=== PATIENT | female | born 1930 | race African-American/Black ===

== ENCOUNTER 2018-06-25 11:34 | Inpatient (IN) | payer OTHER ==
[~2018-06-25] VITALS: Ht 149.9 cm; Wt 31.8 kg
[2018-06-25 11:35] VITALS: BP 106/68
--- NOTE | 2018-06-25 12:20 | NUR ---
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
[2018-06-25 12:32] LABS: ANION GAP 17 mmol/L (7-16); BUN 114 mg/dL (7-18); CALCIUM 9.5 mg/dL (8.5-10.1); CHLORIDE 120 mmol/L (98-107); CO2 27 mmol/L (21-32); CREATININE 4.6 mg/dL (0.6-1.0); GLUCOSE 197 mg/dL (74-106); MAGNESIUM 3.1 mg/dL (1.8-2.4); POTASSIUM 4.6 mmol/L (3.5-5.1); SGOT 40 U/L (15-37); SGPT 35 U/L (30-65); TOTAL BILIRUBIN 0.9 mg/dL (<0.1-1.0); TOTAL PROTEIN 8.5 g/dL (6.4-8.2); TROPONIN-I <0.06 ng/mL (<0.06)
[2018-06-25 12:36] LABS: SODIUM 164 mmol/L (136-145)
[2018-06-25 12:47] LABS: URINE BLOOD NEGATIVE (Negative); URINE CLARITY CLOUDY; URINE COLOR YELLOW; URINE GLUCOSE-RANDOM* NEGATIVE (Negative); URINE KETONES 1+ (Negative); URINE LEUKOCYTES-REFLEX NEGATIVE (Negative); URINE NITRITE-REFLEX NEGATIVE (Negative); URINE PROTEIN (DIPSTICK) 1+ (Negative); URINE SPECIFIC GRAVITY >= 1.030 (1.005-1.035)
[2018-06-25 12:49] LABS: ICTOTEST (BILI CONFIRMATORY) Negative (Negative); URINE BILIRUBIN NEGATIVE (Negative)
[2018-06-25 13:02] LABS: SQUAMOUS 0-3 Few /LPF (0-3)
[2018-06-25 13:03] LABS: AMORPHOUS URATES Moderate /LPF (None Seen); BACTERIA-REFLEX 1-9 Few /HPF (None Seen); CASTS None Seen /LPF (None Seen); URINE RBC 0-2 Rare /HPF (0-2); URINE WBC-REFLEX 0-5 Rare /HPF (0-5)
[2018-06-25] MEDS ORDERED: VITAMINC500 PO (13:10)
[2018-06-25] MEDS ORDERED: TYLENOL325 MG PO (13:10)
[2018-06-25] MEDS ORDERED: LIORESAL 10 MG10 MG PO (13:11)
[2018-06-25] MEDS ORDERED: AUGMENTIN 875-1 EACH PO (13:11)
[2018-06-25] MEDS ORDERED: UNICOMPLEX M TA1 TA1 PO (13:11)
[2018-06-25] MEDS ORDERED: TRAMADOL 50 MG50 MG PO (13:11)
[2018-06-25] MEDS ORDERED: VOLTAREN GEL 1100 G2 TOP (13:12)
--- NOTE | 2018-06-25 13:17 | NUR ---
[id number] [phone]
[2018-06-25 13:19] VITALS: BP 107/70
--- NOTE | 2018-06-25 14:31 | EKG ---
[address] [place] [address] ELECTROCARDIOGRAM REPORT Name: AVANI RODRIGUEZ Room #: 170-6 ADM IN M.R.#: [id number] ������������������ Admission: 06/25/18 ������������������ Attend Phys: Nedra Donato Discharge: ������������������ Date of : [birth year] Report #: [id number] ����������������������������������������������������������������� [id number] THIS REPORT FOR: //name// [facility] ED Test Date: 2018-06-25 Test Time: 12:13:32 Pat Name: AVANI RODRIGUEZ Department: Room: 170 Gender: F Buyer: SAKINA : 1930 Requested By: Ric Pelayo Order Number: [id number] MD: Freddie Alejandra Measurements Intervals [place] Rate: 104 P: 0 IL: 150 QRS: 14 QRSD: 79 T: 59 QT: 354 QTc: 466 Interpretive Statements Sinus tachycardia Ventricular premature complex Low voltage, extremity leads No previous ECG available for comparison Electronically Signed On 06-25-2018 14:30:54 CDT by Freddie Alejandra [email or web address] ��������������������������������������������� <ELECTRONICALLY SIGNED> ���������������������������������������� By: Freddie Alejandra MD ��������������������������������������������� 06/25/18 1430 1212 12 MD SUSANNA Gaona
[2018-06-25 15:52] VITALS: BP 92/50
--- NOTE | 2018-06-25 18:30 | NUR ---
ADMISSION ASSESMENT COMPLETED. VSS. RESPONSIVE ONLY TO TACTILE STIMULI. WOUNDS PHOTOGRAPHED. IVF INFUSING. REPOSITIONED. BED ALARM ON. WILL CONT. TO MONITOR.
--- NOTE | 2018-06-25 18:46 | NUR ---
WOUND CONSULT: PT. WAS SEEN TODAY BY DR. OLIVER AND MYSELF. PT. HAS MULTIPLE PRESSURE ULCERS AND IS SEVERAL CONTRACTED AND MALNURISHED. RIGHT BUTTOCK-STAGE 4 RIGHT ISCHIAL TUBEROSITY-STAGE 4 RIGHT MEDIAL KNEE-STAGE 2 RIGHT PATTON-STAGE 4 RECOMMENDATIONS: WOUND CARE TO ALL SITES BUT, RIGHT KNEE: GENTLY CLEANSE AREA WITH WOUND CLEANSER OR NORMAL SALINE, PACK WITH DAKIN MOIST KERLIX, COVER WITH ABD, SECURE WITH TAPE, COMPLETE CARES BID. TURN Q2 HOURS KEEP PT. OFF WOUNDS MUCH POSSIBLE KEEP ON SONALI MATRESS. WOUND CARE TO RIGHT MEDIAL KNEE: GENTLY CLEANSE WITH WOUND CLEANSER OR NORMAL SALINE, COVER WITH OPTIFOAM BORDER, COMPLETE CARES M/W/F AND PRN SOILAGE. PT. AND STAFF NURSE WERE INSTRUCTED ON PLAN OF CARE.
[2018-06-25 19:26] VITALS: BP 110/66
[2018-06-26 04:20] VITALS: BP 105/62
--- NOTE | 2018-06-26 04:57 | NUR ---
ASSUMED PT CARE 1899. REASSESSMENT COMPLETE. VSS. DRESSING CHANGES COMPLETE PER ORDER. IV DRESSING C/D/I, NO SIGNS OF INFILTRATION. FREQUENT ROUNDING. WILL CONTINUE POC UINTIL EOS.
[2018-06-26 05:22] LABS: HEMOGLOBIN 7.7 gm/dL (12.0-15.0); MCH 28.5 pg (26.0-34.0); MCV 91.9 fL (80.0-100.0); RBC 2.72 mil/uL (4.20-5.00); RDW 18.2 % (10.5-14.5); WBC 11.8 thou/uL (4.0-11.0)
[2018-06-26 05:30] LABS: CALCIUM 8.9 mg/dL (8.5-10.1); CREATININE 4.4 mg/dL (0.6-1.0); POTASSIUM 4.7 mmol/L (3.5-5.1)
[2018-06-26 07:08] VITALS: BP 115/71
[2018-06-26] MEDS ORDERED: DURAGESIC1 EAC4 TRANSDERM (09:38)
[2018-06-26] MEDS ORDERED: MSL20MG/ML PO (09:38)
--- NOTE | 2018-06-26 09:59 | NUR ---
WOUND FOLLOW UP: PT. WAS SEEN TODAY BY DR. OLIVER AND MYSELF. PT. WOUNDS ARE NON-CHANGING. UN-LIKLEY TO HEAL AT THIS POINT. PT. IS VERY CONTRACTURED AND NON-VERBAL. RECOMMENDATIONS: CONTINUE WITH CURRENT PLAN OF CARE. PT. AND STAFF NURSE WERE INSTRUCTED ON PLAN OF CARE.
--- NOTE | 2018-06-26 11:31 | NUR ---
Pt with severe protein calorie malnutrition. Chart reviewed and noted will dc with hospice. Defer further nutrition evaluation
--- NOTE | 2018-06-26 15:59 | NUR ---
INITIAL ASSESSMENT: Pt evaluated for d/c planning needs. Reviewed chart and spoke with nurse, product marketing coordinator at facility, guardian and granddaughter. Pt apparently had been living at home with her adult daughter. According to the pt's granddaughter/guardian, pt's daughter is a "crack-head". Pt had multiple admissions to [facility] after falling at home. Pt was sent to [facility] and then went to [facility] on March 29, 2018. Pt has been at [facility] in the past. Pt's family said they were unaware that pt had multiple wounds on her backside. Family is wanting to have pt transfer to [facility] and are adamantly refusing return to [facility] with hospice. Referral sent to [facility]. Faxed referral. [facility] does have bed available if pt is appropriate. [facility] will send RN to evaluate pt about 1800 today. Outside the Hospital DNR form signed by physician and is on front of chart. Ambulance transfer form completed and placed on front of chart. Pt and family members are aware of [facility] nurse coming to the hospital to evaluate pt tonight. If pt accepted to [facility], RN will need to fax ambulance transfer form to [facility] and then call to schedule ambulance. Hotlined to [facility] because of wounds. [facility] ambulance [phone]; fax [phone] [facility] [phone]
[2018-06-26 16:12] VITALS: BP 107/70
== END 2018-06-26 21:00 | disposition hospice, inpatient (51) | DRG 871 ==
LOC: ER 11:34 → EROBS 13:08 → 4E 13:08
PROVIDERS: Emergency Medicine; ADMIT Hospitalist
DX: A41.9 Sepsis, unspecified organism (principal); L89.894 Pressure ulcer of other site, stage 4; E43 Unspecified severe protein-calorie malnutrition; E87.0 Hyperosmolality and hypernatremia; N17.9 Acute kidney failure, unspecified; I69.351 Hemiplegia and hemiparesis following cerebral infarction affecting right dominant side; Z68.1 Body mass index [BMI] 19.9 or less, adult; L89.310 Pressure ulcer of right buttock, unstageable; L89.892 Pressure ulcer of other site, stage 2; E86.0 Dehydration; F03.90 Unspecified dementia, unspecified severity, without behavioral disturbance, psychotic disturbance, mood disturbance, and anxiety; E83.41 Hypermagnesemia; Z79.899 Other long term (current) drug therapy
CPT/HCPCS: 10084